=== PATIENT | female | born 1990 | race American Indian/Alaskan Native ===

== ENCOUNTER 2018-08-19 08:56 | Emergency (ER) | payer OTHER ==
[2018-08-19 09:06] VITALS: RESP 18; TEMP 98.6; O2SAT 100
--- NOTE | 2018-08-19 09:11 | ED PDOC ---
Arrival/HPI - General Chief Complaint: Female Genitourinary Time Seen by Provider: 08/19/18 09:09 Historian: Patient - History of Present Illness Narrative History of Present Illness (Text): 08/19/18 09:09 28 y/o female, no significant pmh, penicillin allergy, c/o burning urinary sensation x 2 days. Burning urinary sensation, feels like her usual urinary tract infection started about 2 days ago, no fever or chills, no headache or night sweat, no rash, no pelvic pain, no vaginal bleeding or discharge, no night sweat, no other medical or psychological complaints. Past Medical History - Provider Review Nursing Documentation Reviewed: Yes - Psychiatric Hx Substance Use: No - Surgical History Hx Section: Yes Family/Social History - Physician Review Nursing Documentation Reviewed: Yes Family/Social History: Unknown Family HX Smoking Status: Light Smoker < 10 Cigarettes Daily Hx Alcohol Use: No Hx Substance Use: No Allergies/Home Meds Allergies/Adverse Reactions: Allergies amoxicillin Allergy (Verified 08/19/18 09:06) ANGIOEDEMA Review of Systems - Review of Systems Constitutional: absent: Fatigue, Fevers Eyes: absent: Vision Changes ENT: absent: Hearing Changes Respiratory: absent: SOB, Cough Cardiovascular: absent: Chest Pain Gastrointestinal: absent: Abdominal Pain, Nausea, Vomiting Genitourinary Female: Dysuria. absent: Frequency Musculoskeletal: absent: Arthralgias, Back Pain Skin: absent: Rash, Pruritis Neurological: absent: Headache, Dizziness Psychiatric: absent: Anxiety, Depression, Suicidal Ideation Physical Exam Vital Signs Reviewed: Yes Vital Signs Temp Pulse Resp BP Pulse Ox 08/19/18 09:03 98.6 F 81 18 114/76 100 Temperature: Afebrile Blood Pressure: Normal Pulse: Regular Respiratory Rate: Normal Appearance: Positive for: Well-Appearing, Non-Toxic, Comfortable Pain Distress: Mild Mental Status: Positive for: Alert and Oriented X 3 - Systems Exam Head: Present: Atraumatic, Normocephalic Pupils: Present: PERRL Extroacular Muscles: Present: EOMI Conjunctiva: Present: Normal Mouth: Present: Moist Mucous Membranes Neck: Present: Normal Range of Motion Respiratory/Chest: Present: Clear to Auscultation, Good Air Exchange. No: Respiratory Distress, Accessory Muscle Use Cardiovascular: Present: Regular Rate and Rhythm, Normal S1, S2. No: Murmurs Abdomen: No: Tenderness, Distention, Peritoneal Signs Back: Present: Normal Inspection. No: CVA Tenderness, Midline Tenderness, Pain with Leg Raise Upper Extremity: Present: Normal Inspection. No: Cyanosis, Edema Lower Extremity: Present: Normal Inspection. No: Edema Neurological: Present: GCS=15, CN II-XII Intact, Speech Normal Skin: Present: Warm, Dry, Normal Color. No: Rashes Psychiatric: Present: Alert, Oriented x 3, Normal Insight, Normal Concentration Medical Decision Making ED Course and Treatment: 08/19/18 09:10 -urine hcg and -observe and reassess 08/19/18 10:38 -Urine hcg is negative -UA show +UTI with +yeast, diflucan and macrobid ordered. -All labs discussed with the patient and advised her to repeat test in 7 days after completion of treatment. -Discharge home with macrobid, pyridium, stay hydrated, follow up with your own pmd in 2 days and repeat urine test in 7 days, return to the ER for any new or worsening signs or symptoms. - Lab Interpretations Lab Results: Lab Results 08/19/18 09:00: Urine Color Yellow, Urine Appearance Clear, Urine pH 6.5, Ur Specific Marquez 1.015, Urine Protein 30 H, Urine Glucose (UA) Negative, Urine Ketones Negative, Urine Blood Moderate H, Urine Nitrate Negative, Urine Bilirubin Negative, Urine Urobilinogen 1.0 H, Ur Leukocyte Esterase Large H, Urine RBC 15 - 20, Urine WBC 25 - 30, Ur Epithelial Cells 6 - 8, Urine Bacteria Many, Coarse Granular Casts Trace H, Urine Other Uyeast - Medication Orders Current Medication Orders: Fluconazole (Diflucan) 150 mg PO STAT STA PRN Reason: Protocol Stop: 08/19/18 10:37 - 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 Disposition/Present on Arrival - Present on Arrival Any Indicators Present on Arrival: No History of DVT/PE: No History of Uncontrolled Diabetes: No Urinary Catheter: No History of Decub. Ulcer: No History Surgical Site Infection Following: None - Disposition Have Diagnosis and Disposition been Completed?: Yes Diagnosis: UTI (urinary tract infection) Disposition: HOME/ ROUTINE Disposition Time: 09:10 Patient Plan: Discharge Condition: GOOD Additional Instructions: -Discharge home with macrobid, pyridium, stay hydrated, follow up with your own pmd in 2 days and repeat urine test in 7 days, return to the ER for any new or worsening signs or symptoms. Prescriptions: Nitrofurantoin Macrocrystals [Macrobid] 100 mg PO BID #14 cap Phenazopyridine [Phenazopyridine HCl] 200 mg PO TID #6 tab Referrals: [facility] at [facility] [place] [Outside] - Follow up with primary Forms: [facility] (Maldivian), WORK NOTE
[2018-08-19 09:36] LABS: PH,URINE 6.5 (4.7-8.0); URINE BILIRUBIN NEGATIVE (NEGATIVE); URINE BLOOD MODERATE (NEGATIVE); URINE GLUCOSE (UA) NEGATIVE (NEGATIVE); URINE LEUKOCYTE ESTERASE LARGE Leu/uL (NEGATIVE); URINE PROTEIN 30 mg/dL (<30 mg/dL)
[2018-08-19 10:04] LABS: URINE APPEARANCE CLEAR (CLEAR); URINE COLOR YELLOW (YELLOW)
[2018-08-19 10:16] LABS: URINE BACTERIA MANY (NEG); URINE RBC 15 - 20 /hpf (0-2); URINE WBC 25 - 30 /hpf (0-6)
[2018-08-19 10:17] LABS: URINE COARSE GRANULAR CAST TRACE /hpf (0-2)
[2018-08-19 11:08] VITALS: BP 122/82; PULSE 77
== END 2018-08-19 11:08 | disposition home or self-care (01) ==
LOC: ED 08:56 → MERGE 08:56 → ED 11:08
DX: N39.0 Urinary tract infection, site not specified (principal); F17.210 Nicotine dependence, cigarettes, uncomplicated

== ENCOUNTER 2018-08-26 10:48 | Emergency (ER) | payer OTHER ==
[2018-08-26 10:49] VITALS: BMI 41.5
--- NOTE | 2018-08-26 11:06 | ED PDOC ---
Addendum entered and electronically signed by Olivia Fowler PA-C 08/26/18 20:29: Addendum Addendum: 08/26/18 20:28 Pt refused azithromycin AND rocephin for empiric treatment of gonorrhea and chlamydia. States she would rather wait for the results of the test and return for treatment if positive. Original Note: Arrival/HPI - General Time Seen by Provider: 08/26/18 11:00 Historian: Patient - History of Present Illness Narrative History of Present Illness (Text): 08/26/18 18:17 28 y/o female with PMH of ovarian cysts presents to the ED c/o right groin pain x 1 week. Pain is constant 10/10, worse with movement. Pt was seen here last monday by Dr. Sherwood and treated for candidal vaginitis and UTI with Diflucan, Pyridium, and Macrobid. She stopped taking the antibiotics 2 days ago "because they weren't working". Pt also states Pyridium made her vomit. Over the course of the week, pt has had intermittent diaphoresis, nausea, and back pain. Pt is sexually active without protection, stating her boyfriend is often unfaithful. LMP 07/11, states this cycle was late, currently bleeding. One episode of yellow vaginal discharge Monday. Pt denies fevers, chills, nausea, abdominal pain, diarrhea, SOB, cough, chest pain, rash. Past Medical History - Provider Review Nursing Documentation Reviewed: Yes - Psychiatric Hx Substance Use: No - Surgical History Hx Section: Yes - Anesthesia Hx Anesthesia: No Hx Anesthesia Reactions: No Family/Social History - Physician Review Nursing Documentation Reviewed: Yes Family/Social History: No Known Family HX Smoking Status: Light Smoker < 10 Cigarettes Daily Hx Alcohol Use: No Hx Substance Use: No Allergies/Home Meds Allergies/Adverse Reactions: Allergies amoxicillin Allergy (Verified 08/26/18 11:00) RASH Penicillins Allergy (Verified 08/26/18 11:00) RASH Review of Systems - Physician Review All systems were reviewed & negative as marked: Yes - Review of Systems Constitutional: Normal. absent: Fevers Eyes: Normal. absent: Vision Changes ENT: Normal. absent: Tinnitus, Sore Throat, Epistaxis, Sinus Congestion Respiratory: Normal. absent: SOB, Cough Cardiovascular: Normal. absent: Chest Pain, Palpitations, Syncope Gastrointestinal: Abdominal Pain, Appetite Changes. absent: Stool Changes, Constipation, Diarrhea, Nausea, Vomiting Genitourinary Female: Dysuria, Vaginal Bleeding, Vaginal Discharge Musculoskeletal: absent: Back Pain, Neck Pain, Joint Swelling, Myalgias Skin: Skin Lesions (anal sores). absent: Rash, Pruritis, Laceration, Abscess, Cellulitis Neurological: Normal. absent: Headache Endocrine: Diaphoresis Physical Exam Temperature: Afebrile Blood Pressure: Normal Pulse: Regular Respiratory Rate: Normal Appearance: Positive for: Well-Appearing, Non-Toxic, Uncomfortable Pain Distress: Moderate Mental Status: Positive for: Alert and Oriented X 3 - Systems Exam Head: Present: Atraumatic, Normocephalic Pupils: Present: PERRL Extroacular Muscles: Present: EOMI Conjunctiva: Present: Normal Mouth: Present: Dry Neck: Present: Normal Range of Motion. No: MIDLINE TENDERNESS, Paraspinal Tenderness Respiratory/Chest: Present: Clear to Auscultation, Good Air Exchange. No: Respiratory Distress, Accessory Muscle Use Cardiovascular: Present: Regular Rate and Rhythm, Normal S1, S2. No: Murmurs Abdomen: Present: Normal Bowel Sounds. No: Tenderness, Distention, Peritoneal Signs Genitourinary/Pelvic Exam: Present: Normal External Genitalia, Vaginal Bleeding, Odor. No: Vaginal Discharge, Vaginal Lesions, Adenexal Tenderness, Adenexal Mass, Cervical Motion Tendernes Back: Present: Normal Inspection, CVA Tenderness (left side). No: Midline Tenderness, Paraspinal Tenderness Upper Extremity: Present: Normal Inspection, Normal ROM, NORMAL PULSES Lower Extremity: Present: Tenderness (right groin). No: Normal ROM (decreased on right secondary to pain), Jacob's Sign Neurological: Present: GCS=15, CN II-XII Intact, Speech Normal Skin: Present: Warm, Dry, Normal Color. No: Rashes Lymphatic: Present: Inguinal Adenopathy. No: Cervical Adenopathy Psychiatric: Present: Alert, Oriented x 3, Normal Insight, Normal Concentration Medical Decision Making ED Course and Treatment: 08/26/18 15:14 28 y/o female with PMH of ovarian cysts presents to the ED c/o right groin pain x 1 week. Pain is constant 10/10, worse with movement. Pt was seen here last monday by Dr. Sherwood and treated for candidal vaginitis and UTI with Diflucan, Pyridium, and Macrobid. She stopped taking the antibiotics 2 days ago "because they weren't working". Pt also states Pyridium made her vomit. Over the course of the week, pt has had intermittent diaphoresis, nausea, and back pain. Pt is sexually active without protection, stating her boyfriend is often unfaithful. LMP 07/11, states this cycle was late, currently bleeding. Pt denies fevers, chills, nausea, abdominal pain, diarrhea, SOB, cough, chest pain, rash. Physical exam: Normal cardiac and pulmonary exam Abdominal exam: Pt obese, non-distended. Tender in RUQ. No RLQ tenderness. Back exam: Normal inspection. CVA tenderness on the left. Lower Extremity exam: right inguinal lymphadenopathy, exquisitely tender in right groin, worse with movement Pelvic exam: Multiple small ulcerated areas around anus, otherwise normal external genitalia. Severe pain during speculum exam, vaginal canal non- erythematous with moderate amount of blood. Cervix non-erythematous, without discharge, closed. Cervical motion tenderness with bimanual examination. Will get UA, culture Will get CBC, CMP Will test for GC/Chlamydia Will swab anal sores for HSV Will get TV US, Duplex R leg, Pt unable to give urine until hydrated. 2 nurses unable to get IV line placement on patient, will call lab to send Solexel thomas. POC : negative CBC: wnl CMP: wnl UA: large blood, moderate leuk esterase, WBC, ketones, protein Duplex Right Lower Leg: FINDINGS: The visualized deep venous system of the right lower extremity is sonographically normal and compressible. Normal waveforms and augmentation are seen. There is no sonographic evidence for deep venous thrombosis in the visuali zed segments of the right lower extremity. IMPRESSION: 1. No sonographic evidence for deep venous thrombosis in the visualized segments of the right lower extremity. Pelvic Ultrasound: FINDINGS: UTERUS: Measures 4 x 4.1 x 6.5 cm. Normal in size and appearance. No fibroid or other mass lesion seen. ENDOMETRIUM: Measures 2.8 mm in diameter. No ultrasound findings to suggest gestational sac, fluid, debris, mass or polyp or other pathologic process within the endometrium. CERVIX: No cervical abnormality identified. RIGHT OVARY: Measures 1.8 x 1.6 x 2.7 cm. No solid mass. Normal flow. Simple cyst 1.6 x 1.3 cm LEFT OVARY: Measures 1.7 x 3 x 3.7 cm cm. No solid mass. Normal flow. FREE FLUID: No significant free fluid noted. OTHER FINDINGS: None. IMPRESSION: No acute findings related to/accounting for the clinical presentation. Additional benign and/or incidental findings described above. 08/26/18 16:03 Pt c/o increased pain, will give 30mg IV Toradol Case discussed with Dr. Pearce, who recommends CT abd and pelvis w/o IV or PO contrast 08/26/18 17:26 Pt reassessed, reports decreased pain. CT Abd/Pelvis: FINDINGS: LOWER THORAX: Unremarkable. LIVER: Unremarkable. No gross lesion or ductal dilatation. GALLBLADDER AND BILE DUCTS: Unremarkable. PANCREAS: Unremarkable. No gross lesion or ductal dilatation. SPLEEN: Unremarkable. ADRENALS: Unremarkable. No mass. KIDNEYS AND URETERS: Unremarkable. No hydronephrosis. No solid mass. VASCULATURE: Unremarkable. No aortic aneurysm. BOWEL: Diverticulosis without an acute inflammatory component or other associated pathologic process. APPENDIX: Unremarkable. Normal appendix. PERITONEUM: Unremarkable. No free fluid. No free air. LYMPH NODES: Unremarkable. No enlarged lymph nodes. BLADDER: Unremarkable. REPRODUCTIVE: Unremarkable. BONES: No acute fracture. OTHER FINDINGS: None. IMPRESSION: No significant or acute findings to account for/ related to the clinical presentation. Additional benign and/or incidental findings described above. 08/26/18 17:31 Results discussed with pt, who understands. Discussed the importance of taking her full course of antibiotics. Discussed risk for STIs, pt wants to be "tested for everything" Told pt that our usual procedure is to empirically treat for GC/Chlamydia. Pt refuses Rocephin shot. Accepts Azithromycin tablet. Will give first dose of Bactrim here. 08/26/18 17:45 Impression: UTI, Ovarian Cyst Plan: Take 1 pill Bactrim twice daily for 5 days Take 800mg ibuprofen every 6 hours with food as needed Increase fluids You will be called if culture results come back positive, or if your antibiotic needs changed Followup with primary doctor within 2 days Followup with OBGYN within 2 days Return to ED if you develop high fever, vomiting, severe abdominal pain Disposition/Present on Arrival - Present on Arrival Any Indicators Present on Arrival: No History of DVT/PE: No History of Uncontrolled Diabetes: No Urinary Catheter: No History of Decub. Ulcer: No History Surgical Site Infection Following: None - Disposition Have Diagnosis and Disposition been Completed?: Yes Diagnosis: Ovarian cyst, UTI (urinary tract infection) Disposition Time: 17:10 Patient Plan: Discharge Patient Problems: Current Active Problems Problem Status Onset Ovarian cyst Acute UTI (urinary tract infection) Acute Condition: GOOD Discharge Instructions (ExitCare): Ovarian Cysts, Urinary Tract Infections in Adults Additional Instructions: Take 1 pill Bactrim twice daily for 5 days Take 600mg ibuprofen every 6 hours with food as needed You will be called if culture results come back positive, or if your antibiotic needs changed Followup with primary doctor within 2 days Followup with OBGYN within 2 days Return to ED if you develop high fever, vomiting, severe abdominal pain Prescriptions: Ibuprofen [Motrin Tab] 600 mg PO Q6H PRN #20 tab PRN Reason: Pain, Moderate (4-7) Sulfamethoxazole/Trimethoprim [Bactrim DS 800 mg-160 mg] 1 tab PO Q12H 5 Days #9 tab Referrals: Christine Gomez MD [Primary Care Provider] - Follow up with primary Steve Solorzano [Medical Doctor] - Follow up with primary Forms: WORK NOTE
[2018-08-26 11:07] VITALS: TEMP 98.2
[2018-08-26] MEDS ORDERED: Sodium Chloride 0.9% 1,000 ML IV STA (11:51)
[2018-08-26 13:18] LABS: BASO # 0.05 K/mm3 (0.0-2.0); BASO % 0.7 % (0.0-3.0); EOS # 0.1 (0.0-0.7); EOS % 1.4 % (1.5-5.0); GRAN # 3.6 (1.4-6.5); GRAN % 48.6 % (50.0-68.0); HEMOGLOBIN 12.7 g/dL (12.0-16.0); LYMPH # 3.1 (1.2-3.4); MEAN CELL VOLUME 93.4 fl (80.0-105.0); MEAN CORPUSCULAR HEMOGLOBIN 31.1 pg (25.0-35.0); MEAN CORPUSCULAR HGB CONC 33.3 g/dl (31.0-37.0); MEAN PLATELET VOLUME 10.2 fl (7.0-11.0); MONO # 0.5 (0.1-0.6); MONO % 7.3 % (1.0-6.0); RBC 4.08 10^6/uL (3.5-6.1); RED CELL DISTRIBUTION WIDTH 12.3 % (11.5-14.5); WHITE BLOOD COUNT 7.4 10^3/ul (4.5-11.0)
[2018-08-26 13:53] VITALS: O2SAT 99
[2018-08-26 14:54] LABS: PH,URINE 5.5 (4.7-8.0); URINE BILIRUBIN SMALL (NEGATIVE); URINE BLOOD LARGE (NEGATIVE); URINE GLUCOSE (UA) NEGATIVE (NEGATIVE); URINE LEUKOCYTE ESTERASE MODERATE Leu/uL (NEGATIVE); URINE PROTEIN 30 mg/dL (<30 mg/dL)
[2018-08-26 14:57] LABS: URINE APPEARANCE CLEAR (CLEAR); URINE COLOR YELLOW (YELLOW)
[2018-08-26 15:08] LABS: URINE AMORPHOUS SEDIMENT FEW; URINE BACTERIA MANY (NEG); URINE RBC TNTC /hpf (0-2); URINE WBC 25 - 30 /hpf (0-6)
[2018-08-26 15:36] LABS: ALBUMIN 3.7 g/dL (3.0-4.8); ALT/SGPT 20 U/L (7-56); AST/SGOT 20 U/L (14-36); BLOOD UREA NITROGEN 11 mg/dL (7-21); CALCIUM 8.9 mg/dL (8.4-10.5); GFR NON-AFRICAN AMERICAN > 60; LIPASE 66 U/L (23-300)
--- NOTE | 2018-08-26 15:46 | US ---
PROCEDURE: Right lower extremity venous US HISTORY: Leg pain and swelling. Evaluate for DVT. PHYSICIAN(S): Torsten Danielson M.D. TECHNIQUE: Duplex sonography and color-flow Doppler with graded compression were used to evaluate the deep venous system of the right lower extremity. The exam is limited by body habitus and edema FINDINGS: The visualized deep venous system of the right lower extremity is sonographically normal and compressible. Normal waveforms and augmentation are seen. There is no sonographic evidence for deep venous thrombosis in the visualized segments of the right lower extremity. IMPRESSION: 1. No sonographic evidence for deep venous thrombosis in the visualized segments of the right lower extremity.
--- NOTE | 2018-08-26 16:43 | US ---
Date of service: 08/26/2018 HISTORY: Pain, vaginal bleeding Currently menstruating COMPARISON: None available. TECHNIQUE: Transvaginal only. Real -time technique with 2D, duplex and color Doppler FINDINGS: UTERUS: Measures 4 x 4.1 x 6.5 cm. Normal in size and appearance. No fibroid or other mass lesion seen. ENDOMETRIUM: Measures 2.8 mm in diameter. No ultrasound findings to suggest gestational sac, fluid, debris, mass or polyp or other pathologic process within the endometrium. CERVIX: No cervical abnormality identified. RIGHT OVARY: Measures 1.8 x 1.6 x 2.7 cm. No solid mass. Normal flow. Simple cyst 1.6 x 1.3 cm LEFT OVARY: Measures 1.7 x 3 x 3.7 cm cm. No solid mass. Normal flow. FREE FLUID: No significant free fluid noted. OTHER FINDINGS: None. IMPRESSION: No acute findings related to/accounting for the clinical presentation. Additional benign and/or incidental findings described above.
--- NOTE | 2018-08-26 17:30 | CT ---
Date of service: 08/26/2018 PROCEDURE: CT Abdomen and Pelvis without intravenous contrast HISTORY: stone search, r/o pyelo, abdominal pain COMPARISON: August 26, 2018. Pelvic ultrasound TECHNIQUE: Unenhanced. Neither IV nor oral contrast administered Radiation dose: Total exam DLP = 1134.82 mGy-cm. This CT exam was performed using one or more of the following dose reduction techniques: Automated exposure control, adjustment of the mA and/or kV according to patient size, and/or use of iterative reconstruction technique. FINDINGS: LOWER THORAX: Unremarkable. LIVER: Unremarkable. No gross lesion or ductal dilatation. GALLBLADDER AND BILE DUCTS: Unremarkable. PANCREAS: Unremarkable. No gross lesion or ductal dilatation. SPLEEN: Unremarkable. ADRENALS: Unremarkable. No mass. KIDNEYS AND URETERS: Unremarkable. No hydronephrosis. No solid mass. VASCULATURE: Unremarkable. No aortic aneurysm. BOWEL: Diverticulosis without an acute inflammatory component or other associated pathologic process. APPENDIX: Unremarkable. Normal appendix. PERITONEUM: Unremarkable. No free fluid. No free air. LYMPH NODES: Unremarkable. No enlarged lymph nodes. BLADDER: Unremarkable. REPRODUCTIVE: Unremarkable. BONES: No acute fracture. OTHER FINDINGS: None. IMPRESSION: No significant or acute findings to account for/ related to the clinical presentation. Additional benign and/or incidental findings described above.
[2018-08-26] MEDS ORDERED: Tmp-Smz 800 mg-160 mg DS Tab PO STA (17:48)
[2018-08-26 19:18] VITALS: BP 120/81; PULSE 70; RESP 18
== END 2018-08-26 19:17 | disposition home or self-care (01) ==
LOC: ED 10:48
DX: N83.201 Unspecified ovarian cyst, right side (principal); N39.0 Urinary tract infection, site not specified
CPT/HCPCS: 74176; 76830; 80053; 81001; 83690; 85025; 87086; 87255; 87491; 87591; 93971; 96361; 96374; 99285; J1885; J7030

== ENCOUNTER 2018-09-02 15:29 | Emergency (ER) | payer OTHER ==
[2018-09-02 15:29] VITALS: BMI 41.5
[2018-09-02 16:05] VITALS: TEMP 97.7; O2SAT 100
[2018-09-02] MEDS ORDERED: Gentamicin 240 MG in Sodium Chloride 0.9% 100 ML IM STA (17:10)
[2018-09-02] MEDS ORDERED: Gentamicin 80 mg/2mL Inj. IM ONE (17:15)
--- NOTE | 2018-09-02 18:05 | ED PDOC ---
Arrival/HPI - General Historian: Patient - History of Present Illness Narrative History of Present Illness (Text): 09/02/18 18:07 28-year-old female presents today for treatment of her a gonococcal infection. Patient states she was seen in the emergency room last week and received a phone call that she was positive for gonorrhea. Patient states she was unable to follow-up with a sprayer insecticide and returns to the emergency room today for treatment. Patient states she also tested positive for genital herpes and is still having an outbreak but states symptoms are greatly improved. Patient denies fevers or chills. No chest pain or shortness of breath. Patient denies abdominal pain. No dizziness or weakness. No other complaints. <Aziza Boyd - Last Filed: 09/02/18 18:38> <Henrry Sherwood - Last Filed: 09/04/18 16:43> - General Chief Complaint: Abnormal Labs Time Seen by Provider: 09/02/18 16:58 Past Medical History - Provider Review Nursing Documentation Reviewed: Yes - Travel History Have you recently traveled outside [place] w/in the past 3 mons?: No - Tetanus Immunization Tetanus Immunization: Unknown - Cardiac Hx Cardiac Disorders: No - Pulmonary Hx Respiratory Disorders: No - Neurological Hx Neurological Disorder: No - HEENT Hx HEENT Disorder: No - Renal Hx Renal Disorder: No - Endocrine/Metabolic Hx Endocrine Disorders: No - Hematological/Oncological Hx Blood Disorders: No - Integumentary Hx Dermatological Disorder: No - Musculoskeletal/Rheumatological Hx Musculoskeletal Disorders: No - Gastrointestinal Hx Gastrointestinal Disorders: No - Genitourinary/Gynecological Hx Genitourinary Disorders: Yes Hx Sexually Transmitted Diseases: Yes Hx Urinary Tract Infection: Yes - Psychiatric Hx Psychophysiologic Disorder: No Hx Substance Use: No - Surgical History Hx Section: Yes - Anesthesia Hx Anesthesia: No Hx Anesthesia Reactions: No <Aziza Boyd - Last Filed: 09/02/18 18:38> Family/Social History - Physician Review Nursing Documentation Reviewed: Yes Family/Social History: Unknown Family HX Smoking Status: Light Smoker < 10 Cigarettes Daily Hx Alcohol Use: No Hx Substance Use: No <Aziza Boyd - Last Filed: 09/02/18 18:38> Allergies/Home Meds <Aziza Boyd - Last Filed: 09/02/18 18:38> <Henrry Sherwood - Last Filed: 09/04/18 16:43> Allergies/Adverse Reactions: Allergies amoxicillin Allergy (Verified 09/02/18 16:00) RASH Penicillins Allergy (Verified 09/02/18 16:00) RASH Review of Systems - Review of Systems Constitutional: absent: Fatigue, Fevers Respiratory: absent: SOB, Cough Cardiovascular: absent: Chest Pain, Palpitations Gastrointestinal: absent: Abdominal Pain, Constipation, Diarrhea, Nausea, Vomiting Musculoskeletal: absent: Arthralgias, Back Pain, Neck Pain Neurological: absent: Headache, Dizziness Psychiatric: absent: Anxiety, Depression <Aziza Boyd T - Last Filed: 09/02/18 18:38> Physical Exam Vital Signs Reviewed: Yes Vital Signs Temp Pulse Resp BP Pulse Ox 09/02/18 16:01 97.7 F 76 16 118/74 100 Temperature: Afebrile Blood Pressure: Normal Pulse: Regular Respiratory Rate: Normal Appearance: Positive for: Well-Appearing, Non-Toxic, Comfortable Pain Distress: None Mental Status: Positive for: Alert and Oriented X 3 - Systems Exam Head: Present: Atraumatic Mouth: Present: Moist Mucous Membranes Respiratory/Chest: Present: Clear to Auscultation Cardiovascular: Present: Regular Rate and Rhythm Abdomen: No: Tenderness Upper Extremity: Present: Normal ROM Lower Extremity: Present: Normal ROM Neurological: Present: GCS=15, Speech Normal Skin: Present: Warm, Dry, Normal Color Psychiatric: Present: Alert, Oriented x 3 <Aziza Boyd T - Last Filed: 09/02/18 18:38> Vital Signs Temp Pulse Resp BP Pulse Ox 09/02/18 18:18 97.7 F 70 17 123/69 100 09/02/18 16:01 97.7 F 76 16 118/74 100 <Henrry Sherwood - Last Filed: 09/04/18 16:43> Medical Decision Making ED Course and Treatment: 09/02/18 18:09 Patient is nontoxic well-appearing in no distress with stable vital signs Patients has positive gonococcal serology from previous ER visit. Patient is allergic to penicillin. 240 mg of gentamicin IM given 2 g of Zithromax by mouth given Patient was advised that she must follow up with primary care physician and the sprayer insecticide within the next 2 days. I advised the patient that she must follow- up to have repeat testing 2 weeks after this treatment. Patient was advised to refrain from unprotected sex with her partner or other partners. Patient was advised to have all current partners tested and treated. Patient states that her current partner was already treated. Patient also had positive HSV testing during her last ER visit. Although symptoms aren't improving patient still states that she has some lesions. I will give the patient a prescription for acyclovir. The patient was advised that she will need to get acyclovir as soon as possible if she has another outbreak. Patient verbalizes understanding of discharge instructions and need for immediate followup. all aspects of this case were discussed the attending of record. Impression: Gonorrhea, STD exposure, history of herpes simplex Follow-up with her sprayer insecticide within the next 2 days Return if symptoms worsen persist or if new concerning symptoms develop - Medication Orders Current Medication Orders: Discontinued Medications Azithromycin (Zithromax) 2,000 mg PO STAT STA; Protocol Stop: 09/02/18 17:14 Last Admin: 09/02/18 17:38 Dose: 2,000 mg Gentamicin Sulfate (Gentamicin) 240 mg IM ONCE ONE Stop: 09/02/18 17:16 Last Admin: 09/02/18 17:33 Dose: 240 mg IM Administration Charges Document 09/02/18 17:33 OCS (Rec: 09/02/18 17:33 OCS [id number]) Injection Site MAR Injection Site Left Deltoid Charges for Administration # of IM Administrations 1 <Aziza Boyd - Last Filed: 09/02/18 18:38> - Medication Orders Current Medication Orders: Discontinued Medications Azithromycin (Zithromax) 2,000 mg PO STAT STA; Protocol Stop: 09/02/18 17:14 Last Admin: 09/02/18 17:38 Dose: 2,000 mg Gentamicin Sulfate (Gentamicin) 240 mg IM ONCE ONE Stop: 09/02/18 17:16 Last Admin: 09/02/18 17:33 Dose: 240 mg IM Administration Charges Document 09/02/18 17:33 OCS (Rec: 09/02/18 17:33 OCS [id number]) Injection Site MAR Injection Site Left Deltoid Charges for Administration # of IM Administrations 1 <Henrry Sherwood - Last Filed: 09/04/18 16:43> - PA / DIRECTOR MARKET[employer] / Resident Statement MD/ has reviewed & agrees with the documentation as recorded. <Henrry Sherwood - Last Filed: 09/04/18 16:43> Disposition/Present on Arrival - Present on Arrival Any Indicators Present on Arrival: No History of DVT/PE: No History of Uncontrolled Diabetes: No Urinary Catheter: No History of Decub. Ulcer: No History Surgical Site Infection Following: None - Disposition Have Diagnosis and Disposition been Completed?: Yes Disposition Time: 17:00 Patient Plan: Discharge <Aziza Boyd - Last Filed: 09/02/18 18:38> <Henrry Sherwood - Last Filed: 09/04/18 16:43> - Disposition Diagnosis: Gonorrhea, STD exposure, Hx of herpes simplex infection Disposition: HOME/ ROUTINE Condition: GOOD Discharge Instructions (ExitCare): Gonorrhea (DC), Sexually-Transmitted Diseases (DC) Additional Instructions: Follow-up with her sprayer insecticide within the next 2 days Return if symptoms worsen persist or if new concerning symptoms develop Prescriptions: RX: Acyclovir [Zovirax] 400 mg PO TID #21 tab Referrals: Christine Gomez MD [Primary Care Provider] - Follow up with primary Chan Buckley DO [Staff Provider] - [facility] - Follow up with primary Forms: [email or web address] (Greek), WORK NOTE
[2018-09-02 19:20] VITALS: BP 123/69; PULSE 70; RESP 17
== END 2018-09-02 18:18 | disposition home or self-care (01) ==
LOC: ED 15:29
DX: Z20.2 Contact with and (suspected) exposure to infections with a predominantly sexual mode of transmission (principal); A54.9 Gonococcal infection, unspecified; B00.9 Herpesviral infection, unspecified
CPT/HCPCS: 96372; 99283; J1580